=== PATIENT | female | born 1990 | race Caucasian/White ===

== ENCOUNTER 2021-06-20 08:07 | Day surgery (SDC) | payer BC ==
[~2021-06-20] VITALS: Ht 175.3 cm; Wt 114.5 kg
[~2021-06-20 08:07] MED LIST: HYDROmorphone 2 MG/ML VIAL IVP PRN; fentaNYL PF VIAL 100 MCG/2 ML VIAL IVP PRN
[2021-06-20] MEDS ORDERED: ROCURONIUM 50 MG/5 ML VIAL. ONE (08:38)
[2021-06-20] MEDS ORDERED: ONDANSETRON PF 4 MG/2 ML VIAL. ONE (08:38)
[2021-06-20] MEDS ORDERED: PROPOFOL 10 MG/ML (20ML) VIAL. IV ONE (08:38)
[2021-06-20] MEDS ORDERED: FAMOTIDINE 20 MG/2 ML VIAL ONE (08:38)
[2021-06-20] MEDS ORDERED: LIDOCAINE 2% PF 5 ML VIAL. ONE (08:38)
[2021-06-20] MEDS ORDERED: DEXAMETHASONE SOD PHOS 4 MG/ML VIAL ONE ×2 (08:38→09:51)
[2021-06-20 08:39] VITALS: BP 123/82
[2021-06-20] MEDS ORDERED: MIDAZOLAM HCL/PF 2 MG/2 ML VIAL. ONE (08:39)
[2021-06-20] MEDS ORDERED: fentaNYL PF VIAL 100 MCG/2 ML VIAL ONE ×2 (08:39→10:35)
[2021-06-20] MEDS ORDERED: IOHEXOL 300 MG/ML 50 ML VIAL. ONE (09:15)
[2021-06-20] MEDS ORDERED: SURGICEL HEMOSTAT 4X8 EACH. ONE (09:15)
[2021-06-20] MEDS ORDERED: BUPIVACAINE-EPI 0.5% 30 ML VIAL KIT. ONE (09:15)
[2021-06-20] MEDS ORDERED: BUPR150T21 PO (09:21)
[2021-06-20] MEDS ORDERED: IBUP-1007 PO (09:22)
[2021-06-20] MEDS ORDERED: MULT-496 PO (09:22)
[2021-06-20] MEDS ORDERED: LEXAPRO20 MG PO (09:22)
[2021-06-20] MEDS ORDERED: VITA1TAB19 PO (09:23)
[2021-06-20] MEDS ORDERED: FERR-36 PO (09:23)
[2021-06-20] MEDS ORDERED: MELA3TAB43 PO (09:24)
[2021-06-20] MEDS: IV RINGERS,LACTATED 1000ML 1,000 ML IV SCH ×2 (09:28→12:00)
[2021-06-20] MEDS ORDERED: ETOMIDATE 20 MG/10 ML VIAL. IV ONE (09:39)
[2021-06-20] MEDS ORDERED: NEOSTIGMINE METHYLSULFATE 5 MG/5 ML SYRINGE. ONE (10:11)
[2021-06-20] MEDS ORDERED: GLYCOPYRROLATE 1 MG/5 ML VIAL. ONE (10:11)
[2021-06-20] MEDS ORDERED: KETOROLAC 30 MG/ML VIAL. ONE (10:11)
[2021-06-20] MEDS ORDERED: SEVOFLURANE 31 TO 60 MINUTES. IH ONE (10:14)
--- NOTE | 2021-06-20 10:22 | PDOC4 ---
Operative Note Operative Note Date: June 20, 2021 at 1020 Preoperative diagnosis: Chronic cholecystitis Postoperative diagnosis: Same Procedure: Laparoscopic cholecystectomy with fluorescein cholangiography Surgeon: Mejia Specimen: Gallbladder Dictation: Patient is a 30-year-old female right upper quadrant abdominal pain ultrasound showing gallstones. Procedure of laparoscopic cholecystectomy was explained to the patient detail all risk benefits were also discussed including bleeding infection injury to intra-abdominal contents possible necessitating further open operations alternatives to this procedure also discussed with the patient who seemed to understand and gave a verbal written consent to have the procedure performed. Patient was taken to the operating room placed in the supine position general anesthesia was initiated once patient was sleeping intubated her abdomen was prepped and draped usual sterile fashion using ChloraPrep. An area just below the umbilicus was injected with quarter percent Marcaine with epinephrine and incision was made 11 blade scalpel and a varies needle was placed within the abdomen creating pneumoperitoneum once this was complete 11 mm port was placed in a 5 mm camera was placed within the abdomen which was inspected no other abnormalities were noted. A 5 mm port was placed in the epigastrium a 5 mm port was placed in the right midabdomen a 5 mm port was placed in the right lateral abdomen. The dome of the gallbladder is grasped retracted cephalad the infundibulum of the gallbladder is grasped tract laterally the adherent tissues were taken down with blunt dissection exposing the cystic duct and cystic artery fluorescein camera was inspected there was good imaging of the cystic duct to the common bile duct with no evidence of obstruction. The cystic duct was doubly clipped and transected the cystic artery was clipped and transected the gallbladder is taken off the liver with hook electrocautery placed in Endo Catch bag moving the umbilicus right upper quadrant is irrigated and suctioned dry hemostasis deemed to be appropriate the pneumoperitoneum was reduced all ports were removed the fascial defect at the umbilicus was closed with a [id number] 0 Vicryl sutures. Skin was reapproximated all port sites for subicular Monocryl Mastisol Steri-Strips and island dressings were applied. Patient was awakened and extubated in the operating room taken to recovery in stable condition all sponge instrument needle counts listed as correct estimated blood loss 5 mL WILMA RUBIO MD Jun 20, 2021 10:22
[2021-06-20] MEDS ORDERED: OXYC1TAB15 PO (10:24)
--- NOTE | 2021-06-20 10:26 | DISCH ---
DISCHARGE INSTRUCTIONS Condition on Discharge Condition on Discharge: Stable Activity After Discharge Activity Instructions for Disc: Avoid exertion Other activity instructions: No lifting more than 20 pounds for 2 weeks Diet after Discharge Diet after Discharge: Low Fat Wound Incision Care Other wound/incision instructi: May shower in 24 hours Contacting the after DC Call your doctor for: If your condition worsens Follow-Up Follow up with: Dr. Rubio in 2 weeks WILMA RUBIO MD Jun 20, 2021 10:26
[2021-06-20] MEDS ORDERED: PROCHLORPERAZINE 10 MG/2 ML VIAL. ONE (10:35)
[2021-06-20] MEDS: PROCHLORPERAZINE 10 MG/2 ML VIAL. IVP PRN ×2 (10:39→11:00)
[2021-06-20] MEDS: fentaNYL PF VIAL 100 MCG/2 ML VIAL IVP PRN ×2 (10:40→11:01)
[2021-06-20] MEDS ORDERED: oxyCODONE/APAP 5/325 1 TAB TABLET PO ONE ×2 (11:30)
[2021-06-20] MEDS ORDERED: MORPHINE SULFATE 2 MG/ML INJ. ONE (11:31)
[2021-06-20] MEDS: MORPHINE SULFATE 2 MG/ML INJ. IVP PRN ×2 (11:32→12:00)
[2021-06-20 12:15] VITALS: BP 128/66
--- NOTE | 2021-06-22 19:08 | PATHOLOGY ---
[facility] Accession Number: [id number] . 01 Material submitted: . gallbladder - GALLBLADDER . 01 Clinical history: . CHOLECYSTECTOMY CHRONIC CHOLECYSTIS . 02 Diagnosis: Gallbladder, cholecystectomy: - Cholelithiasis. - Cholesterolosis, focal. - Chronic cholecystitis. (M:jeanette; 06/22/2021) S 06/22/2021 1404 Local . 02 Comment: There is no evidence of malignancy. (JPM:jeanette; 06/22/2021) . 02 Electronically signed: . Brown Márquez MD, Pathologist NPI- [id number] . 01 Gross description: . Fixative: Formalin Labeled: Gallbladder Specimen received: Intact gallbladder Dimensions: 9.8 x 3.8 x 3.7 cm Serosa: Blue-nash Lymph node: None identified Mucosa: Velvety, bile-stained Average wall thickness: 0.1 Calculi: Present displaying a bile-stained, nodular appearance Abnormalities: None identified . A1- Solidworks Designer body, fundus, and the cystic duct margin. ([facility]; 06/21/2021) NRI/NRI 06/21/2021 1151 Local . 02 Pathologist provided ICD-10: K80.10, K82.4 . 02 CPT . 427520 Specimen Comment: A courtesy copy of this report has been sent to [phone] Specimen Comment: Report sent to Performed at: 01 [facility] [address] [address], [place] [id number] MD Octavio Tran MD Phone: [phone] Performed at: [address] [facility] [address] [place], [place] [id number] MD Brown Márquez MD Phone: [phone]
== END 2021-06-20 12:51 | disposition home or self-care (01) ==
LOC: SURG 08:07
PROVIDERS: ATTEND Surgery
DX: K80.10 Calculus of gallbladder with chronic cholecystitis without obstruction (principal); F41.9 Anxiety disorder, unspecified; F32.9 Major depressive disorder, single episode, unspecified; Z79.899 Other long term (current) drug therapy; Z98.890 Other specified postprocedural states; Z88.2 Allergy status to sulfonamides; Z91.040 Latex allergy status; Z88.8 Allergy status to other drugs, medicaments and biological substances; Z91.013 Allergy to seafood
CPT/HCPCS: 47562; 81025; A4209; A4364; A4556; A4930; A6219; J0690; J0780; J1100; J1885; J2270; J2405; J2710; J3010; J3490; A4657; J2250; J2704; Q9967